=== PATIENT | male | born 1950 | race Caucasian/White ===

== ENCOUNTER → 2016-05-04 | Outpatient (CLI) | payer MEDICARE, OTHER ==
--- NOTE | 2016-05-04 16:40 | PN ---
DATE OF SERVICE: 05/04/2016 65-year-old gentleman who has been followed in the sleep center for treatment of obstructive sleep apnea hypopnea syndrome. Home sleep apnea test showed that apnea-hypopnea index is 24.8 with oxygen desaturation to 77%. Since that time patient was started on treatment with Auto Pap and usage of Auto pap by reading information from his machine is 77% for more than 4 hours. Subsequently, it was total amount of days when he used machine. Regimen on the machine is on Ultracet from 5 cm of water up to 20 cm of water. Pressure in the range between 10.7 and 15.8 and presently was 14.4 cm of water. It was documented significantly from his mask, patient is using a full-face mask and open mouth during the sleep, 95% ( ) of leakage is 75 L/ minimal. Apnea-hypopnea index reading for the time of usage of machine is 7.3 times per hour. [place] Sleepiness Scale is 17. MEDICATIONS: 1. Albuterol. 2. Allopurinol. 3. Divalproex. 4. Diazepam. 5. Colace. 6. Doxazosin. 7. Enalapril. 8. Furosemide. 9. Ipratropium bromide. 10. Lamotrigine. 11. Levetiracetam. 12. Levothyroxine. 13. ( ). 14. Some supplements. 15. Famotidine. Physical exam the patient is on wheelchair, sleepy. VITAL SIGNS: BP 136/55, HR 58, RR 16. Weight 197. Temperature 98.1. Oxygen saturation at room air 95%. HEENT: PERRLA, EOMI. LUNGS: Clear. HEART: S1, S2 regular. ABDOMEN: Obese. EXTREMITIES: 1+ ankle edema. IMPRESSION: 1. Obstructive sleep apnea-hypopnea syndrome. Patient demonstrated borderline compliance with treatment benefitting from treatment with CPAP. 2. Obesity. 3. Epilepsy. 4. Hypothyroidism. 5. Hypertension. 6. Gout. 7. History of several aspiration pneumonia. 8. Congestive heart failure. 9. History of chronic obstructive pulmonary disease. PLAN: 1. Continue treatment with CPAP every night for the whole night. 2. Losing weight. 3. Chin strap to prevent opening mouth during sleep, and I believe that be one of the reasons for significant leak from the full face mask. 4. We may consider to use different types of mask including nasal mask with chin strap. Thank you very much for allowing me to participate in the management your patient. Sincerely, Alvino Malin MD, PhD, FAASM. Diplomat of [place] [employer], Sleep Medicine Board by [place] [employer] [place] [employer]i Department Manager of [facility] [place]
== END | disposition home or self-care (01) ==
LOC: SLEEP 13:33
PROVIDERS: ATTEND Internal Medicine
DX: G47.33 Obstructive sleep apnea (adult) (pediatric) (principal); E66.9 Obesity, unspecified; G40.909 Epilepsy, unspecified, not intractable, without status epilepticus; E03.9 Hypothyroidism, unspecified; I10 Essential (primary) hypertension; M10.9 Gout, unspecified; Z87.01 Personal history of pneumonia (recurrent); I50.9 Heart failure, unspecified; J44.9 Chronic obstructive pulmonary disease, unspecified; Z79.899 Other long term (current) drug therapy; M25.473 Effusion, unspecified ankle

== ENCOUNTER → 2016-09-28 | Outpatient (CLI) | payer MEDICARE, OTHER ==
--- NOTE | 2016-09-28 12:17 | XR ---
EXAMINATION TYPE: XR chest 2V DATE OF EXAM: 09/28/2016 COMPARISON: 02/25/2016 TECHNIQUE: PA and lateral views submitted. HISTORY: Cough, aspiration pneumonia FINDINGS: Bilateral lower lobe infiltrate and small effusion noted. Heart size stable. Atherosclerotic change a mario. Degenerative change spine. IMPRESSION: 1. Bilateral lower lobe infiltrate and small effusion.
== END | disposition home or self-care (01) ==
LOC: RADXRMAIN 11:44
PROVIDERS: ATTEND Family Medicine
DX: J90 Pleural effusion, not elsewhere classified (principal); R91.8 Other nonspecific abnormal finding of lung field
CPT/HCPCS: 71020

== ENCOUNTER → 2016-11-02 | Outpatient (CLI) | payer MEDICARE, OTHER ==
--- NOTE | 2016-11-02 12:16 | PN ---
DATE OF SERVICE: 11/02/2016 A 65-year-old gentleman had been followed in the sleep center for treatment of obstructive sleep apnea hypopnea syndrome. Patient is on treatment since the beginning of 2016 and he continued to use his CPAP equipment. I check reading from his machine and it shows that usage is 97% for more than 4 hours, which indicate greater compliance with treatment. Average usage for the total amount of days is 7 hours and 10 minutes. Machine on automatic regimen and the range of the pressure between 5 cm and 20 cm. Patient still has significant leak 95% ( ) 98.8. Apnea-hypopnea index was 7.8 average for the month of 07/23/16 to 08/21/16. [place] sleepiness scale is 14. PHYSICAL EXAMINATION: During physical exam, a gentleman on wheelchair , falling asleep during the evaluation. VITAL SIGNS: BP 92/49, HR 60, RR 16, height 5 feet 7 inches, weight 164.5. Temperature 98.0. Oxygen saturation room air 97.7% FACE: Big tongue. Drooling. HEENT: PERRLA. EOMI. Evaluation of oropharynx showed extremely low soft palate. Drooling. NECK: Supple. No JVD. Thyroid is not palpable. LUNGS: Clear to percussion and to auscultation. Good air exchange. No wheezing or rhonchi. HEART: S1, S2, regular. No murmurs, gallops or rubs. ABDOMEN: Obese. EXTREMITIES: No edema. 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 Patient sitting on wheelchair. According to [facility] people, he cannot walk secondary to seizure issues. IMPRESSION: 1. Obstructive sleep apnea hypopnea syndrome. Patient demonstrated 100% compliance with treatment benefiting from treatment. Quite significant leak from the mask. 2. Epilepsy. Patient still has often episodes of seizures. 3. Obesity. 4. Patient is on wheelchair, cannot walk. 5. Hypothyroidism. 6. Hypertension. 7. Gout. 8. History of aspiration pneumonia. 9. History of chronic obstructive pulmonary disease. PLAN: 1. Continue treatment with CPAP every night for the whole night. 2. Patient should receive chin strap. He did not receive chin strap since last visit. 3. Losing weight. 4. Prescription for all necessary CPAP supplies. We may consider to change type of his mask. Thank you very much for allowing me to participate in the management of your patient. Sincerely, Alvino Malin MD, PhD, FAASM Diplomat of [place] [employer] Sleep Medicine Board by [place] [employer] [place] [employer] Outside Sales Account Executive of [facility]
== END ==
LOC: SLEEP 10:18
PROVIDERS: ATTEND Internal Medicine
DX: G47.33 Obstructive sleep apnea (adult) (pediatric) (principal); E66.9 Obesity, unspecified; G40.909 Epilepsy, unspecified, not intractable, without status epilepticus; E03.9 Hypothyroidism, unspecified; I10 Essential (primary) hypertension; J44.9 Chronic obstructive pulmonary disease, unspecified; M10.9 Gout, unspecified; Z87.01 Personal history of pneumonia (recurrent)

== ENCOUNTER → 2017-03-14 | Outpatient (CLI) | payer MEDICARE, OTHER ==
--- NOTE | 2017-03-14 11:25 | FL ---
EXAMINATION TYPE: FL barium swallow w video DATE OF EXAM: 03/14/2017 MODIFIED SWALLOW / DEGLUTITION STUDY CLINICAL HISTORY: Dysphagia. Aspiration. History of mental retardation. TECHNIQUE: Deglutition study is performed utilizing honey and nectar thick liquid barium, and barium thick applesauce. A total of 38 seconds of fluoroscopic time was utilized during procedure. Approxim ately 10 cine sequences were acquired. No spot images are saved to PACS system. COMPARISON: None. FINDINGS: The oral and pharyngeal phases show some delay in initiation and propagation with all modal ities tested. There is aspiration which does not initiate a cough reflex with nectar thick liquid ba rium. Less viscous modalities were not performed. There is single episode of penetration with honey thick liquid barium which clears. Mild pharyngeal residue was appreciated. IMPRESSION: Aspiration with nectar thick liquid barium. Thinner modalities not tested. Please refer t o speech therapist notes for further details if necessary.
== END | disposition home or self-care (01) ==
LOC: RADFLWHC 09:36
PROVIDERS: ATTEND Family Medicine
DX: P24.11 Neonatal aspiration of (clear) amniotic fluid and mucus with respiratory symptoms (principal)
CPT/HCPCS: 74230

== ENCOUNTER → 2017-08-23 | Outpatient (CLI) | payer MEDICARE, OTHER ==
--- NOTE | 2017-08-23 11:23 | SFUN ---
SLEEP CENTER FOLLOW UP NOTE A 66-year-old gentleman who has been followed in the Sleep Center for treatment of moderate obstructive sleep apnea-hypopnea syndrome. Previous sleep study showed apnea- hypopnea index in the range of 24.8. Patient successfully continued to use his CPAP equipment with a full-face mask. Sleeps well with the machine and feel refreshed in the morning. During last visit, we thought about starting to use a chinstrap, but the patient has difficulties with the using chinstrap because of small chin and chin strap sometimes goes away during the night and goes to his lips. Otherwise, he is able to use his machine appropriately every night. I checked his CPAP unit, unit range with a pressure of 5-20, average pressure 10.3, apnea-hypopnea index for the last month 7.7. Usage 25/30 for more than 4 hours, which indicated good compliance. Average usage 6.4 hours. [place] Sleepiness Scale today is 10. MEDICATIONS: Ipratropium, allopurinol, cetirizine, and divalproex, diazepam, stool softener, , enalapril, furosemide, ibuprofen on p.r.n. basis, Lamictal, levetiracetam, levothyroxine, latanoprost, famotidine, glycopyrrolate. PHYSICAL EXAM: Patient is on a wheelchair without distress. BP 96/58, HR 64, RR 16, height 5, 10 inches, weight 170, temperature 97.9. OROPHARYNX: Extremely low position of soft palate. ABDOMEN: Obese. Neck Supple, no JVD. Thyroid is not palpable. LUNGS Clear to percussion and to auscultation. Good air exchange. No wheezing or rhonchi. HEART S1, S2 regular. No murmurs, gallops, or rubs. EXTREMITIES No clubbing or cyanosis. 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 Cranial nerves 2 to 7 intact. There is no fasciculation or atrophy. noted. No focal deficits observed. IMPRESSION: 1. Obstructive sleep apnea-hypopnea syndrome. Patient demonstrated good compliance with treatment benefitting from treatment. 2. History of epilepsy. 3. Obesity. 4. Patient is in wheelchair, cannot walk. 5. History of hypertension. 6. Hypothyroidism. 7. Gout. 8. History of chronic obstructive pulmonary disease. PLAN: 1. Patient will continue to use CPAP equipment with the same regimen every night for the whole night. 2. Sleep hygiene with regular time in bed for at least [address] Patient [address] not [address] 4. Prescription for all necessary CPAP supplies including full-face mask, tube, filters. 5. Followup visit in 1 year or earlier if patient has any problems. Thank you very much for allowing me to participate in the management of your patient. Sincerely, Alvino Malin MD, PhD, FAASM Diplomat of [place] [employer] [place] [employer] Coverstitch Elastic Attacher of [facility] [place] MMODL / IJN: [id number] /
== END | disposition home or self-care (01) ==
LOC: SLEEP 10:17
PROVIDERS: ATTEND Internal Medicine
DX: G47.33 Obstructive sleep apnea (adult) (pediatric) (principal); E66.9 Obesity, unspecified; E03.9 Hypothyroidism, unspecified; M10.9 Gout, unspecified; Z87.09 Personal history of other diseases of the respiratory system; Z86.79 Personal history of other diseases of the circulatory system; Z86.69 Personal history of other diseases of the nervous system and sense organs; Z99.89 Dependence on other enabling machines and devices; Z79.899 Other long term (current) drug therapy; Z79.1 Long term (current) use of non-steroidal anti-inflammatories (NSAID)